=== PATIENT | male | born 1945 | race Caucasian/White ===

== ENCOUNTER → 2016-08-26 | Outpatient (CLI) | payer BC ==
[2016-08-26 17:50] VITALS: BP 136/84
== END ==
LOC: MHUC 17:00
PROVIDERS: ATTEND Physician Assistant Medical
DX: H61.23 Impacted cerumen, bilateral (principal)
CPT/HCPCS: 99213

== ENCOUNTER → 2016-10-04 | Outpatient (CLI) | payer MEDICARE, OTHER ==
[~2016-10-04] MED LIST: HYDR-3754 PO; KETO10TA55 PO; LORA1TAB PO; METO25TA60 PO; MULT-55 PO; OMEP10CA2 PO; SRTR100T PO; VITA1CAP29 PO
--- NOTE | 2016-10-04 11:43 | Diagnostic Imaging Report ---
PA and lateral chest. INDICATION: Shortness of breath. The heart size is within normal limits and stable when compared to 02/02/2015. As on the prior exam there is elevation of the right hemidiaphragm. The lungs are clear. There is no sign of failure, pneumonia, or a pleural effusion. The mediastinum is not widened. The lateral view does show that there is a 10 to 20% compression deformity of the superior endplate of one of the lowermost thoracic vertebrae, probably T10. On the previous exam there was only a very slight compression deformity of this vertebral body. I suspect that this compression fracture is long standing in nature; however, if there is clinical concern regarding an acute or subacute bony abnormality in this area, then MRI would be recommended for further study. IMPRESSION: 1. There is no acute cardiopulmonary abnormality. 2. There is a mild compression deformity of T10. This is probably long standing in nature. Recommendations as above. Dictated by: Dictated on workstation # [id number]
== END ==
LOC: RT 08:57
PROVIDERS: ATTEND Family Medicine
DX: R06.02 Shortness of breath (principal)
CPT/HCPCS: 71020; 93306; 94060; 94726; 94729

== ENCOUNTER → 2016-10-08 | Outpatient (CLI) | payer MEDICARE, OTHER ==
[2016-10-08 14:43] LABS: BILIRUBIN,URINE 1+ (Negative); CLARITY,URINE Clear; COLOR,URINE Yellow; GLUCOSE, URINE (UA) Negative (Negative); LEUKOCYTE ESTERASE ,URINE Negative (Negative); PH,URINE 5.5 (5.0 - 8.0); UROBILINOGEN,URINE 0.2 mg/dL (0.2-1.0)
[2016-10-08 14:44] LABS: BASOPHILS % (AUTO) 1 % (0-2); EOSINOPHILS # (AUTO) 0.1 10^3uL; EOSINOPHILS % (AUTO) 1 % (0-4); LYMPHOCYTES # (AUTO) 2.3 X10^3; MEAN PLATELET VOLUME 11.4 FL (6.0-9.5); MONOCYTES # (AUTO) 0.6 X10^3; MONOCYTES % (AUTO) 11 % (3-11); NEUTROPHILS # (AUTO) 2.8 X10^3; NEUTROPHILS % (AUTO) 47 % (51-67); PLATELET COUNT 151 10^3uL (150-450); WHITE BLOOD COUNT 5.93 10^3uL (4.0-11.0)
[2016-10-08 14:47] LABS: MEAN CORPUSCULAR HEMOGLOBIN 39.7 PG (26.0-34.0); MEAN CORPUSCULAR HGB CONC 35.6 g/dL (31.0-37.0); MEAN CORPUSCULAR VOLUME 112 FL (80-100)
[2016-10-08 14:59] LABS: ALBUMIN 4.3 g/dL (3.4-5.0); ANION GAP 21.2 MEQ/L (3-15)
[2016-10-08 15:26] LABS: ERYTHROCYTE SEDIMENTATION RT* 15 mm/hr (0-19)
== END ==
LOC: LAB 13:42
PROVIDERS: ATTEND Family Medicine
DX: R06.02 Shortness of breath (principal); I10 Essential (primary) hypertension; M62.89 Other specified disorders of muscle
CPT/HCPCS: 36415; 80053; 80061; 81003; 82550; 84439; 84443; 85025; 85652; 86141